=== PATIENT | male | born 1940 | race Caucasian/White ===

== ENCOUNTER 2021-06-18 08:16 | Emergency (ER) | payer MEDICARE, SELFPAY ==
--- NOTE | ~2021-06-18 | US_ITS ---
EXAMINATION: US VENOUS ULTRASOUND WITH DOPPLER LOWER EXTREMITY, BILATERAL CLINICAL INFORMATION: Pain and swelling. COMPARISON: None TECHNIQUE: Ultrasound of the deep veins is performed from the hip to the calf with compression sonography and color and pulse Doppler assessment. Spectral analysis with color-flow imaging is performed. FINDINGS: RIGHT: There is normal venous compression and respiratory variation and augmented flow. The visualized common femoral vein, superficial femoral vein, profunda femoral vein, popliteal vein, and the trifurcation region shows no evidence of deep venous thrombosis. There is no significant popliteal fossa cyst. LEFT: There is normal venous compression and respiratory variation and augmented flow. The visualized common femoral vein, superficial femoral vein, profunda femoral vein, popliteal vein, and the trifurcation region shows no evidence of deep venous thrombosis. There is no significant popliteal fossa cyst. If the patient's symptoms persist, followup ultrasound in 5 days 7 days might be of value to exclude proximal propagation from a non-visualized calf vein. US/US venous duplex LE BI IMPRESSION: No DVT demonstrated in the bilateral lower extremity.
[2021-06-18 08:38] VITALS: BP 148/79; PULSE 103; RESP 16; TEMP 37.1; O2SAT 96
--- NOTE | 2021-06-18 08:40 | ED_ITS ---
HPI - Skin/Abscess/Foreign Bdy General Chief complaint: Extremity Injury, Lower Stated complaint: Leg infection? Time Seen by Provider: 06/18/21 08:38 Source: patient Mode of arrival: ambulatory Limitations: no limitations History of Present Illness MD complaint: lesion and discoloration Onset (ago): week(s) (1) Location: LLE and RLE Severity: moderate Quality: dull and pruritic Pain Consistency: intermittent Relieving factors: none Exacerbating factors: none Context: other (no prior bouts, swollen and red) Associated symptoms: denies other symptoms Treatments prior to arrival: OTC topical medication (vaseline) Related Data Previous Rx's Medication Instructions Recorded tamsulosin 0.4 mg capsule 0.4 mg PO DAILY 90 Days #90 cap 04/05/21 cephalexin 500 mg capsule 500 mg PO TID 7 Days #21 cap 06/18/21 doxycycline hyclate 100 mg capsule 100 mg PO BID 7 Days #14 cap 06/18/21 furosemide 20 mg tablet (Lasix) 20 mg PO DAILY #4 tab 06/18/21 hydrocortisone 1 % lotion 1 appl TOPICAL BID PRN #120 ml 06/18/21 (Anti-Itch (hydrocortisone)) Allergies Allergy/AdvReac Type Severity Reaction Status Date / Time No Known Allergies Allergy Unverified 03/15/20 15:50 [No Known Allergies*] Review of Systems Review of Systems: Constitutional : No Fever, No Chills ENT/Mouth : No sore throat, No Rhinorrhea Eyes: No Eye Pain, No Swelling, No Redness Cardiovascular : No Chest Pain, No SOB, pos LE edema Respiratory : No Cough, No Sputum Gastrointestinal : No Nausea, No Vomiting, No Diarrhea, No abdominal Pain Genitourinary : No Dysuria, No Hematuria Musculoskeletal : No joint pain, No Myalgias, No Joint Swelling Skin : No Skin Lesions, positive skin rash Neuro : No Weakness, No Numbness, No Headache Psych : No Anxiety, No Depression Heme/Lymph: No Bruising, No Bleeding,No Lymphadenopathy Endocrine : No Polyuria, No Polydipsia All other systems reviewed and are negative [facility] Past Medical History Medical History BPH w urinary obs/LUTS Social History Social History (Updated 06/18/21 @ 08:40 by Yesenia Nancy, DO) Patient Tobacco Use Status: Never used Tobacco Advance Directives: No Advance Directives Information Provided: No Physical Exam Vital Signs: Vital Signs: Last Vital Signs Temp 98.8 F 06/18/21 09:28 Pulse 103 H 06/18/21 09:28 Resp 18 06/18/21 09:28 BP 148/89 H 06/18/21 09:28 Pulse Ox 96 06/18/21 09:28 BMI result Body Mass Index 28.3 Appearance: Alert. Oriented X3. No acute distress. Eyes: Pupils equal, round and reactive to light. ENT: Pharynx normal. Neck: Normal inspection. Neck supple. CVS: Normal heart rate and rhythm. Pulses normal. Respiratory: No respiratory distress. Breath sounds normal. Abdomen: Soft and nontender. Skin: Skin warm and dry. Normal skin color. Normal skin turgor. Extremities: Bilateral red shiny LE with 2+ pitting edema from feet to prox shins very mild warmth distal NV intact Neuro: Oriented X 3. No motor deficit. No sensory deficit. Course Course Course Narrative: no DVT, no WBC count, afebrile, slight tachycardia and lactic 2.1 - no increased in redness or pain seems more consistent with venous stasis dermatitis given it is itchy can trial diuretics and outpatient topical as well as oral abx- patient aware and reliable MDM - Skin/Abscess/Foreign Bdy MDM Narrative Medical decision making narrative: 81 yo male with BPH but no other reported medical problems reports worsening LE edema and red rash no trauma no bouts of edema or cellulitis in the past - ? cellulitis vs venous stasis dermatitis - labs, cultures, DVT studies - IV zosyn dispo per results and findings. Lab Data Result diagrams: 06/18/21 08:58 06/18/21 08:58 Labs: Lab Results 06/18/21 06/18/21 06/18/21 Range/Units 08:49 08:58 08:58 WBC 6.6 (4.8-10.8) X10*3/uL RBC 4.73 (4.60-5.80) X10*6/uL Hgb 14.7 (14.0-18.0) g/dl Hct 44.9 (42.0-52.0) % MCV 94.9 (80.0-98.0) fL MCH 31.1 (27.0-33.0) pg MCHC 32.7 (31.0-36.0) g/dl RDW 13.2 (11.0-16.0) % Plt Count 219 (160-400) X10*3/uL MPV 9.9 (9.4-12.4) fL Immature Gran % (Auto) 0.3 (0.0-0.4) % Neut % (Auto) 71.7 (45-73) % Lymph % (Auto) 9.5 L (20-40) % Sanders % (Auto) 9.5 (2-11) % Eos % (Auto) 7.9 H (0-4) % Baso % (Auto) 1.1 (0-2) % Lymph # (Auto) 0.6 L (1.2-4.9) X10*3/uL Sanders # (Auto) 0.6 (0.1-1.2) X10*3/uL Eos # (Auto) 0.5 H (0.0-0.4) X10*3/uL Baso # (Auto) 0.1 (0.0-0.2) X10*3/uL Abs Immat Gran (auto) 0.02 (0.00-0.03) X10*3/uL Absolute Neuts (auto) 4.7 (2.0-8.3) x10*3/uL Absolute Nucleated RBC 0.000 (0.0-0.012) X10*3/uL Nucleated RBC % (auto) 0.0 (0.0-0.2) /100WBC Sodium 143 (135-145) mmol/L Potassium 4.1 (3.3-5.1) mmol/L Chloride 110 H (96-108) mmol/L Carbon Dioxide 27 (22-29) mmol/L Anion Gap 10 L (12-20) BUN 21 H (9-16) mg/dL Creatinine 1.15 (0.5-1.4) mg/dL Estim Creat Clear Calc TNP Estimated GFR > 60 Random Glucose 161 H (60-115) mg/dL Lactic Acid (0.5-2.0) mmol/L Lactic Acid F/U @ 2Hr (0.5-2.0) mmol/L Calcium 9.1 (8.4-10.2) mg/dL Magnesium 2.4 (1.6-2.6) mg/dL Total Bilirubin 0.5 (0.0-1.0) mg/dL Direct Bilirubin 0.2 (0.0-0.5) mg/dL AST 28 (5-37) U/L ALT 27 (0-40) U/L Alkaline Phosphatase 69 (39-117) U/L C-Reactive Protein 0.93 H (< or = 0.50) mg/dL B-Natriuretic Peptide (<100) pg/mL Total Protein 5.8 L (6.5-8.0) g/dL Albumin 3.7 (3.5-5.0) g/dL Urine Color Urine Appearance Urine pH (5.0-8.0) Ur Specific [place] (1.005-1.025) Urine Protein (NEG-TRACE) MG/DL Urine Glucose (UA) (NEG) MG/DL Urine Ketones (NEG) MG/DL Urine Blood (NEG) Urine Nitrite (NEG) Ur Leukocyte Esterase (NEG) COVID-19 ([facility]) Negative (Negative) COVID-19 Clin Com See Note 06/18/21 06/18/21 06/18/21 Range/Units 08:58 08:58 10:54 WBC (4.8-10.8) X10*3/uL RBC (4.60-5.80) X10*6/uL Hgb (14.0-18.0) g/dl Hct (42.0-52.0) % MCV (80.0-98.0) fL MCH (27.0-33.0) pg MCHC (31.0-36.0) g/dl RDW (11.0-16.0) % Plt Count (160-400) X10*3/uL MPV (9.4-12.4) fL Immature Gran % (Auto) (0.0-0.4) % Neut % (Auto) (45-73) % Lymph % (Auto) (20-40) % Sanders % (Auto) (2-11) % Eos % (Auto) (0-4) % Baso % (Auto) (0-2) % Lymph # (Auto) (1.2-4.9) X10*3/uL Sanders # (Auto) (0.1-1.2) X10*3/uL Eos # (Auto) (0.0-0.4) X10*3/uL Baso # (Auto) (0.0-0.2) X10*3/uL Abs Immat Gran (auto) (0.00-0.03) X10*3/uL Absolute Neuts (auto) (2.0-8.3) x10*3/uL Absolute Nucleated RBC (0.0-0.012) X10*3/uL Nucleated RBC % (auto) (0.0-0.2) /100WBC Sodium (135-145) mmol/L Potassium (3.3-5.1) mmol/L Chloride (96-108) mmol/L Carbon Dioxide (22-29) mmol/L Anion Gap (12-20) BUN (9-16) mg/dL Creatinine (0.5-1.4) mg/dL Estim Creat Clear Calc Estimated GFR Random Glucose (60-115) mg/dL Lactic Acid 2.1 H* (0.5-2.0) mmol/L Lactic Acid F/U @ 2Hr (0.5-2.0) mmol/L Calcium (8.4-10.2) mg/dL Magnesium (1.6-2.6) mg/dL Total Bilirubin (0.0-1.0) mg/dL Direct Bilirubin (0.0-0.5) mg/dL AST (5-37) U/L ALT (0-40) U/L Alkaline Phosphatase (39-117) U/L C-Reactive Protein (< or = 0.50) mg/dL B-Natriuretic Peptide 51 (<100) pg/mL Total Protein (6.5-8.0) g/dL Albumin (3.5-5.0) g/dL Urine Color YELLOW Urine Appearance CLEAR Urine pH 6.0 (5.0-8.0) Ur Specific [place] 1.020 (1.005-1.025) Urine Protein NEG (NEG-TRACE) MG/DL Urine Glucose (UA) NEG (NEG) MG/DL Urine Ketones NEG (NEG) MG/DL Urine Blood NEG (NEG) Urine Nitrite NEG (NEG) Ur Leukocyte Esterase NEG (NEG) COVID-19 ([facility]) (Negative) COVID-19 Clin Com 12/21/21 Range/Units 11:22 WBC (4.8-10.8) X10*3/uL RBC (4.60-5.80) X10*6/uL Hgb (14.0-18.0) g/dl Hct (42.0-52.0) % MCV (80.0-98.0) fL MCH (27.0-33.0) pg MCHC (31.0-36.0) g/dl RDW (11.0-16.0) % Plt Count (160-400) X10*3/uL MPV (9.4-12.4) fL Immature Gran % (Auto) (0.0-0.4) % Neut % (Auto) (45-73) % Lymph % (Auto) (20-40) % Sanders % (Auto) (2-11) % Eos % (Auto) (0-4) % Baso % (Auto) (0-2) % Lymph # (Auto) (1.2-4.9) X10*3/uL Sanders # (Auto) (0.1-1.2) X10*3/uL Eos # (Auto) (0.0-0.4) X10*3/uL Baso # (Auto) (0.0-0.2) X10*3/uL Abs Immat Gran (auto) (0.00-0.03) X10*3/uL Absolute Neuts (auto) (2.0-8.3) x10*3/uL Absolute Nucleated RBC (0.0-0.012) X10*3/uL Nucleated RBC % (auto) (0.0-0.2) /100WBC Sodium (135-145) mmol/L Potassium (3.3-5.1) mmol/L Chloride (96-108) mmol/L Carbon Dioxide (22-29) mmol/L Anion Gap (12-20) BUN (9-16) mg/dL Creatinine (0.5-1.4) mg/dL Estim Creat Clear Calc Estimated GFR Random Glucose (60-115) mg/dL Lactic Acid (0.5-2.0) mmol/L Lactic Acid F/U @ 2Hr 1.5 (0.5-2.0) mmol/L Calcium (8.4-10.2) mg/dL Magnesium (1.6-2.6) mg/dL Total Bilirubin (0.0-1.0) mg/dL Direct Bilirubin (0.0-0.5) mg/dL AST (5-37) U/L ALT (0-40) U/L Alkaline Phosphatase (39-117) U/L C-Reactive Protein (< or = 0.50) mg/dL B-Natriuretic Peptide (<100) pg/mL Total Protein (6.5-8.0) g/dL Albumin (3.5-5.0) g/dL Urine Color Urine Appearance Urine pH (5.0-8.0) Ur Specific [place] (1.005-1.025) Urine Protein (NEG-TRACE) MG/DL Urine Glucose (UA) (NEG) MG/DL Urine Ketones (NEG) MG/DL Urine Blood (NEG) Urine Nitrite (NEG) Ur Leukocyte Esterase (NEG) COVID-19 ([facility]) (Negative) COVID-19 Clin Com Discharge Plan Discharge Clinical Impression: Acute bilateral venous stasis dermatitis Cellulitis Qualifiers: Site of cellulitis: extremity Site of cellulitis of extremity: lower extremity Laterality: unspecified laterality Qualified Code(s): L03.119 - Cellulitis of unspecified part of limb Patient Disposition: Home, Self-Care Instructions: Cellulitis (ED), Venous Insufficiency (DC) Additional Instructions: return to ED for any worsening symptoms or concerns please monitor for worsening pain, swelling, redness, fevers elevate legs wear compressive stockings Prescriptions: New cephalexin 500 mg capsule 500 mg PO TID 7 Days Qty: 21 RF: 0 hydrocortisone [Anti-Itch (HC)] 1 % lotion 1 appl topical BID PRN (Reason: itching) Qty: 120 RF: 0 furosemide [Lasix] 20 mg tablet 20 mg PO DAILY Qty: 4 RF: 0 doxycycline hyclate 100 mg capsule 100 mg PO BID 7 Days Qty: 14 RF: 0 No Action tamsulosin 0.4 mg capsule 0.4 mg PO DAILY 90 Days Qty: 90 RF: 1 Referrals: Nathan Shane MD [Primary Care Provider] - 2 days
[2021-06-18 09:07] LABS: MANUAL DIFF FLAG NO
[2021-06-18 09:16] LABS: Basophils Absolute Auto 0.1 X10*3/uL (0.0-0.2); Basophils Percent Auto 1.1 % (0-2); Eosinophils Absolute Auto 0.5 X10*3/uL (0.0-0.4); Eosinophils Percent Auto 7.9 % (0-4); Hematocrit 44.9 % (42.0-52.0); Hemoglobin 14.7 g/dl (14.0-18.0); Imm Gran Abs Auto 0.02 X10*3/uL (0.00-0.03); Imm Gran Pct Auto 0.3 % (0.0-0.4); Lymphocytes Absolute Auto 0.6 X10*3/uL (1.2-4.9); Lymphocytes Percent Auto 9.5 % (20-40); Mean Corpuscular HGB Conc 32.7 g/dl (31.0-36.0); Mean Corpuscular Hemoglobin 31.1 pg (27.0-33.0); Mean Corpuscular Volume 94.9 fL (80.0-98.0); Mean Platelet Volume 9.9 fL (9.4-12.4); Monocytes Absolute Auto 0.6 X10*3/uL (0.1-1.2); Monocytes Percent Auto 9.5 % (2-11); Neutrophils Absolute Auto 4.7 x10*3/uL (2.0-8.3); Neutrophils Percent Auto 71.7 % (45-73); Platelet Count 219 X10*3/uL (160-400); Red Blood Count 4.73 X10*6/uL (4.60-5.80); Red Cell Distribution Width 13.2 % (11.0-16.0); White Blood Count 6.6 X10*3/uL (4.8-10.8)
[2021-06-18] MEDS: Piperacillin Sodium/Tazobactam 3.375 GM in 0.9 % Sodium Chloride 50 ML IV (09:22)
[2021-06-18 09:28] VITALS: BP 148/89; PULSE 103; RESP 18; TEMP 37.1; O2SAT 96; BMI 28.3
[2021-06-18 09:29] LABS: IDNOW Serial# 9DD0AD1C
[2021-06-18 09:30] LABS: Alanine Aminotransferase 27 U/L (0-40); Albumin Level 3.7 g/dL (3.5-5.0); Alkaline Phosphatase 69 U/L (39-117); Anion Gap 10 (12-20); Aspartate Amino Transferase 28 U/L (5-37); Bilirubin Direct 0.2 mg/dL (0.0-0.5); Bilirubin Total 0.5 mg/dL (0.0-1.0); Blood Urea Nitrogen 21 mg/dL (9-16); C Reactive Protein 0.93 mg/dL (< or = 0.50); Calcium 9.1 mg/dL (8.4-10.2); Carbon Dioxide 27 mmol/L (22-29); Chloride 110 mmol/L (96-108); Estimated Glomerular Filt Rate > 60; Glucose Random 161 mg/dL (60-115); Magnesium 2.4 mg/dL (1.6-2.6); Potassium 4.1 mmol/L (3.3-5.1); Sodium 143 mmol/L (135-145); Total Protein 5.8 g/dL (6.5-8.0)
[2021-06-18 09:30] LABS: COVID-19 Test Negative (Negative)
[2021-06-18 09:35] LABS: B Type Natriuretic Peptide 51 pg/mL (<100)
[2021-06-18 09:39] LABS: Lactic Acid 2.1 mmol/L (0.5-2.0)
[2021-06-18] MEDS: 0.9 % Sodium Chloride 500 ML IV (10:59)
[2021-06-18 11:03] LABS: Reflex Lactate? Lactic Acid Added
[2021-06-18 11:39] LABS: ~Lactic Acid-LAB USE ONLY 1.5 mmol/L (0.5-2.0)
[2021-06-18 11:50] LABS: Appearance Urine CLEAR; Color Urine YELLOW; Glucose Urine UA NEG (NEG); Leukocyte Esterase Urine NEG (NEG); Nitrite Urine NEG (NEG); Urine Blood NEG (NEG); Urine Ketones NEG (NEG); Urine Protein NEG (NEG-TRACE)
== END 2021-06-18 13:02 | disposition home or self-care (01) ==
PROVIDERS: Emergency Provider Emergency Medicine; PCP Internal Medicine
DX: L03.116 Cellulitis of left lower limb (principal); L03.115 Cellulitis of right lower limb; I87.2 Venous insufficiency (chronic) (peripheral); Z20.822 Contact with and (suspected) exposure to COVID-19
CPT/HCPCS: 36415; 80048; 80076; 81003; 83605; 83735; 83880; 85025; 86140; 87040; 87635; 93970; 96361; 96365; 99283; 99284; J2543

== ENCOUNTER 2021-07-11 13:44 | Outpatient (REF) | payer MEDICARE, SELFPAY ==
[2021-07-11 15:41] LABS: PSA,Total (Free>4and<10) 1.38 ng/mL (0.00-4.00)
== END 2021-07-11 13:45 | disposition home or self-care (01) ==
LOC: HO.LAB 13:44
PROVIDERS: Visit Provider Urology
DX: Z12.5 Encounter for screening for malignant neoplasm of prostate (principal); N40.1 Benign prostatic hyperplasia with lower urinary tract symptoms; N13.8 Other obstructive and reflux uropathy
CPT/HCPCS: 36415; 84153

== ENCOUNTER → 2021-07-17 14:32 | Outpatient (BNVA) | payer MEDICARE, SELFPAY | PROVIDERS: PCP Internal Medicine; Visit Provider Urology | DX: N40.1 Benign prostatic hyperplasia with lower urinary tract symptoms (principal); N13.8 Other obstructive and reflux uropathy | CPT/HCPCS: 51798; 99212 ==

== ENCOUNTER 2022-01-03 08:09 | Outpatient (RCR) | payer MEDICARE, SELFPAY | END 2022-01-28 13:50 | disposition home or self-care (01) | LOC: HO.WCC 08:09 | PROVIDERS: PCP Internal Medicine; Visit Provider Surgery | DX: L97.822 Non-pressure chronic ulcer of other part of left lower leg with fat layer exposed (principal); L03.116 Cellulitis of left lower limb; R60.0 Localized edema; I73.9 Peripheral vascular disease, unspecified; Z87.891 Personal history of nicotine dependence | CPT/HCPCS: 11042; 97597; 99212 ==

== ENCOUNTER 2022-03-11 13:34 | Outpatient (REF) | payer MEDICARE, SELFPAY ==
--- NOTE | ~2022-03-11 | US_ITS ---
EXAMINATION: COLOR-FLOW DUPLEX IMAGING OF THE BILATERAL LOWER EXTREMITY ARTERIAL SYSTEM. VELOCITY MEASUREMENTS THROUGHOUT THE FEMORAL ARTERIES WITH ANKLE-BRACHIAL PERIPHERAL ARTERIAL TESTING. CLINICAL INFORMATION: This is an 82-year-old male with peripheral arterial disease. Peripheral vascular disease. Chronic ulcers. Interventional Radiologist: Chiki Fenton M.D., F.S.I.R., F.A.C.R. RIGHT FEMORAL RUNOFF VELOCITIES: The right common femoral artery measures 108 cm/s and triphasic. The right profunda femoral artery is 89 cm/s and is biphasic. Right proximal superficial femoral artery measures 122 cm/s and triphasic. Mid superficial femoral artery is 138 cm/s and monophasic. Distal right superficial femoral artery measures 133 cm/s and is triphasic. Right popliteal velocity measures 267 cm/s and is triphasic. The posterior tibial artery velocity measures 124 cm/s and was monophasic. The right ankle-brachial index is 1.28. There are calcified arteries. LEFT FEMORAL RUNOFF VELOCITIES: The left common femoral artery measures 121 cm/s and biphasic. The left profunda femoral artery is 126 cm/s and is biphasic. Left proximal superficial femoral artery measures 128 cm/s and triphasic. Mid superficial femoral artery is 131 cm/s and triphasic. Distal left superficial femoral artery measures 87 cm/s and is triphasic. Left popliteal velocity measures 93 cm/s and is monophasic. The posterior tibial artery velocity measures 90 cm/s and was monophasic. The left ankle-brachial index is 1.28. There are calcified vessels. US/US arterial duplex LE BI IMPRESSION: 1. There are bilateral calcified vessels which decreases the sensitivity of examination. 2. There is likely a hemodynamically significant stenosis in the right popliteal artery. 3. No hemodynamically significant stenosis is evident within the left lower extremity runoff.
--- NOTE | ~2022-03-11 | US_ITS ---
EXAMINATION: COLOR-FLOW DUPLEX IMAGING OF THE BILATERAL LOWER EXTREMITY ARTERIAL SYSTEM. VELOCITY MEASUREMENTS THROUGHOUT THE FEMORAL ARTERIES WITH ANKLE-BRACHIAL PERIPHERAL ARTERIAL TESTING. CLINICAL INFORMATION: This is an 82-year-old male with peripheral arterial disease. Peripheral vascular disease. Chronic ulcers. Interventional Radiologist: Chiki Fenton M.D., F.S.I.R., F.A.C.R. RIGHT FEMORAL RUNOFF VELOCITIES: The right common femoral artery measures 108 cm/s and triphasic. The right profunda femoral artery is 89 cm/s and is biphasic. Right proximal superficial femoral artery measures 122 cm/s and triphasic. Mid superficial femoral artery is 138 cm/s and monophasic. Distal right superficial femoral artery measures 133 cm/s and is triphasic. Right popliteal velocity measures 267 cm/s and is triphasic. The posterior tibial artery velocity measures 124 cm/s and was monophasic. The right ankle-brachial index is 1.28. There are calcified arteries. LEFT FEMORAL RUNOFF VELOCITIES: The left common femoral artery measures 121 cm/s and biphasic. The left profunda femoral artery is 126 cm/s and is biphasic. Left proximal superficial femoral artery measures 128 cm/s and triphasic. Mid superficial femoral artery is 131 cm/s and triphasic. Distal left superficial femoral artery measures 87 cm/s and is triphasic. Left popliteal velocity measures 93 cm/s and is monophasic. The posterior tibial artery velocity measures 90 cm/s and was monophasic. The left ankle-brachial index is 1.28. There are calcified vessels. US/US CORAL complete IMPRESSION: 1. There are bilateral calcified vessels which decreases the sensitivity of examination. 2. There is likely a hemodynamically significant stenosis in the right popliteal artery. 3. No hemodynamically significant stenosis is evident within the left lower extremity runoff.
== END 2022-03-11 13:35 | disposition home or self-care (01) ==
LOC: HO.US 13:34
PROVIDERS: Visit Provider Physician Assistant
DX: I73.9 Peripheral vascular disease, unspecified (principal); L97.822 Non-pressure chronic ulcer of other part of left lower leg with fat layer exposed; L97.801 Non-pressure chronic ulcer of other part of unspecified lower leg limited to breakdown of skin
CPT/HCPCS: 93923; 93925

== ENCOUNTER 2022-03-21 13:53 | Outpatient (REF) | payer MEDICARE, SELFPAY ==
[2022-03-21 14:39] LABS: Hematocrit 44.4 % (42.0-52.0); Hemoglobin 14.4 g/dl (14.0-18.0); Mean Corpuscular HGB Conc 32.4 g/dl (31.0-36.0); Mean Corpuscular Hemoglobin 29.8 pg (27.0-33.0); Mean Corpuscular Volume 91.9 fL (80.0-98.0); Mean Platelet Volume 9.8 fL (9.4-12.4); Platelet Count 243 X10*3/uL (160-400); Red Blood Count 4.83 X10*6/uL (4.60-5.80); Red Cell Distribution Width 13.9 % (11.0-16.0); White Blood Count 8.7 X10*3/uL (4.8-10.8)
[2022-03-21 15:10] LABS: Alanine Aminotransferase 19 U/L (0-40); Albumin Level 3.9 g/dL (3.5-5.0); Alkaline Phosphatase 76 U/L (39-117); Anion Gap 17 (12-20); Aspartate Amino Transferase 20 U/L (5-37); Bilirubin Direct 0.2 mg/dL (0.0-0.5); Bilirubin Total 0.7 mg/dL (0.0-1.0); Calcium 9.3 mg/dL (8.4-10.2); Carbon Dioxide 24 mmol/L (22-29); Chloride 105 mmol/L (96-108); Estimated Glomerular Filt Rate 54; Glucose Random 107 mg/dL (60-115); Potassium 4.7 mmol/L (3.3-5.1); Sodium 141 mmol/L (135-145); Total Protein 6.9 g/dL (6.5-8.0)
[2022-03-21 15:13] LABS: Blood Urea Nitrogen 26 mg/dL (9-16)
[2022-03-21 15:24] LABS: Thyroid Stimulating Hormone 0.93 uIU/mL (0.32-4.0)
== END 2022-03-21 13:54 | disposition home or self-care (01) ==
LOC: HO.LAB 13:53
PROVIDERS: PCP Internal Medicine; Visit Provider Internal Medicine
DX: L03.90 Cellulitis, unspecified (principal)
CPT/HCPCS: 36415; 80048; 80076; 84443; 85027